=== PATIENT | male | born 1970 | race African-American/Black ===

== ENCOUNTER 2018-08-08 13:09 | Emergency (ER) | payer BC ==
[~2018-08-08] VITALS: Ht 170.2 cm; Wt 86.4 kg
[2018-08-08 13:13] VITALS: Ht 170.2 cm; Wt 86.4 kg
[2018-08-08] MEDS ORDERED: ABSORICA40 MG PO (13:15)
[2018-08-08] MEDS ORDERED: NAPROSYN500 MG PO (14:04)
[2018-08-08] MEDS ORDERED: MEDROL DOSE PACK4 MG PO (14:04)
[2018-08-08] MEDS ORDERED: FLUTICASONE PRO16 GM NASAL (14:04)
[2018-08-08 14:57] VITALS: BP 130/81
== END 2018-08-08 14:55 | disposition home or self-care (01) ==
LOC: D.ER 13:09
DX: J31.0 Chronic rhinitis (principal); M54.5 Low back pain